=== PATIENT | female | born 1985 | race Hispanic/Latino ===

== ENCOUNTER 2023-05-05 23:20 | Emergency (ER) | payer OTHER ==
[2023-05-05] MEDS ORDERED: METHYLPREDNISOLONE 125 MG INJ ONE (23:49)
[2023-05-05] MEDS ORDERED: DIPHENHYDRAMINE 50 MG/ML VIAL ONE (23:50)
[2023-05-05] MEDS ORDERED: FAMOTIDINE 20 MG/2 ML VIAL IV ONE (23:50)
--- NOTE | 2023-05-06 00:53 | ER ---
Nurse's Notes [facility] Name: Zhanna Gomez Age: 37 yrs Sex: Female : 1985 Arrival Date: 05/05/2023 Time: 23:20 Bed 8 Private MD: Diagnosis: Allergic reaction Presentation: 05/05 23:37 Chief complaint: Patient states: swelling and rash on the face and extremities. denies rv SOB. airway is patent. Coronavirus screen: At this time, the client does not indicate any symptoms associated with coronavirus-19. Ebola Screen: No symptoms or risks identified at this time. Onset: The symptoms/episode began/occurred suddenly. Anaphylaxis evaluation, the patient reports or I have noted the following symptoms which indicate a significant risk of anaphylaxis: . The patient has been moved to a treatment room and the charge nurse or attending physician has been notified. Initial Sepsis Screen: Does the patient meet any 2 criteria? No. Patient's initial sepsis screen is negative. Does the patient have a suspected source of infection? No. Patient's initial sepsis screen is negative. Risk Assessment: Do you want to hurt yourself or someone else? Patient reports no desire to harm self or others. Onset of symptoms was May 05, 2023. 23:37 Method Of Arrival: Ambulatory rv 23:37 Acuity: LIUDMILA 2 rv Triage Assessment: 23:44 General: Appears comfortable, Behavior is calm, cooperative. Pain: Denies pain. Neuro: rv Level of Consciousness is awake, alert, obeys commands, Oriented to person, place, time, situation. Cardiovascular: Capillary refill. Respiratory: Airway is patent Respiratory effort is even, unlabored. Derm: Rash noted that is red, on face, right arm, left arm, right leg and left leg. Historical: - Allergies: 23:40 No Known Allergies; rv - PMHx: 23:40 None; rv - PSHx: 23:40 None; rv - Immunization history:: Adult Immunizations up to date. - Social history:: Smoking status: Patient denies any tobacco usage or history of. Screenin:44 [facility] ED Fall Risk Assessment (Adult) History of falling in the last 3 months, rv including since admission No falls in past 3 months (0 pts) Confusion or Disorientation No (0 pts) Intoxicated or Sedated No (0 pts) Impaired Gait No (0 pts) Mobility Assist Device Used No (0 pt) Altered Elimination No (0 pt) Score/Fall Risk Level 0 - 2 = Low Risk Oriented to surroundings, Maintained a safe environment, Educated pt \T\ family on fall prevention, incl call for assistance when getting out of bed, Assessed \T\ reinforced patient's understanding of fall precautions, Provided non-skid footwear, Hourly rounding (assess needs \T\ fall precautionary measures) done, Used ambulatory aids as needed (educated on \T\ assisted with), Used gait belt as appropriate. Abuse screen: Denies threats or abuse. Denies injuries from another. Nutritional screening: No deficits noted. Tuberculosis screening: No symptoms or risk factors identified. Assessment: 23:45 Respiratory: Airway is patent Breath sounds are clear bilaterally. rv Vital Signs: 23:37 BP 122 / 78; Pulse 126; Resp 18; Temp 97.9; Pulse Ox 95% ; Weight 102.06 kg; Height 5 rv ft. 4 in. ; 05/06 01:01 BP 110 / 73; Pulse 71; Resp 18 S; Pulse Ox 97% on R/A; jw7 05/05 23:37 Body Mass Index 38.62 (102.06 kg, 162.56 cm) rv ED Course: 05/05 23:21 Patient arrived in ED. kj1 23:23 Ximena Zamora MD is Attending Physician. sd2 23:24 Clement Avendaño, BRIGIDO is Primary Nurse. rv 23:30 Inserted saline lock: 20 gauge in right forearm, using aseptic technique. rv 23:39 Triage completed. rv 23:45 No provider procedures requiring assistance completed. rv 23:45 Patient has correct armband on for positive identification. Placed in gown. Bed in low rv position. Call light in reach. Provided Education on: ANAPHYLAXIS. Client placed on continuous cardiac and pulse oximetry monitoring. NIBP monitoring applied. playground monitor on. 23:45 Arm band placed on right wrist. rv 05/06 01:01 IV discontinued, intact, bleeding controlled, No redness/swelling at site. Pressure rv dressing applied. Administered Medications: 05/05 23:46 Drug: diphenhydrAMINE IVP 50 mg Route: IVP; Site: right forearm; rv 05/06 01:00 Follow up: Response: No adverse reaction rv 05/05 23:46 Drug: Famotidine IVP 20 mg Route: IVP; Site: right forearm; rv 05/06 01:00 Follow up: Response: No adverse reaction rv 05/05 23:46 Drug: MethylPrednisoLONE IVP 125 mg Route: IVP; Site: right forearm; rv 05/06 01:00 Follow up: Response: No adverse reaction rv Medication: 05/05 23:45 VIS not applicable for this client. rv Outcome: 05/06 00:52 Discharge ordered by . sd2 01:00 Discharged to home ambulatory, with significant other. rv 01:00 Condition: stable 01:00 Discharge instructions given to patient, Instructed on discharge instructions, follow up and referral plans. medication usage, Demonstrated understanding of instructions, follow-up care, medications, Prescriptions given X 2. 01:01 Patient left the ED. jw7 Signatures: Clement Avendaño RN RN rv Miriam Delatorre kj1 Nabila Lira RN RN jw7 Ximena Zamora MD MD sd2 Corrections: (The following items were deleted from the chart) 05/05 23:43 23:37 Acuity: LIUDMILA 3 rv rv
--- NOTE | 2023-05-06 00:53 | EDPHYS ---
Physician Documentation [facility] Name: Zhanna Gomez Age: 37 yrs Sex: Female : 1985 Arrival Date: 05/05/2023 Time: 23:20 Bed 8 Private MD: ED Physician Ximena Zamora HPI: 05/05 23:34 This 37 yrs old Female presents to ER via Unassigned with complaints of sd2 Allergic Reaction. 23:34 37 yo F presents with CC of allergic reaction to shrimp she ate about an hour ago for sd2 dinner. Reports normally only has a mild reaction in the past but has pruritic rash to entire body and swelling of her eyelids. Denies any significant trouble breathing, trouble swallowing, wheezing, vomiting or diarrhea. Did not take any medications for the symptoms before coming. . Historical: - Allergies: 23:40 No Known Allergies; rv - PMHx: 23:40 None; rv - PSHx: 23:40 None; rv - Immunization history:: Adult Immunizations up to date. - Social history:: Smoking status: Patient denies any tobacco usage or history of. ROS: 23:34 Constitutional: Negative for fever, chills, and weight loss, Eyes: Negative for injury, sd2 pain, redness, and discharge, Positive for lid swelling Neck: Negative for injury, pain, and swelling, Cardiovascular: Negative for chest pain, palpitations, and edema, Respiratory: Negative for shortness of breath, cough, wheezing. Abdomen/GI: Negative for abdominal pain, nausea, vomiting, diarrhea. MS/Extremity: Negative for injury and deformity, Skin: Negative for injury, Positive for rash, and discoloration. Exam: 23:34 Constitutional: This is a well developed, well nourished patient who is awake, alert, sd2 and in no acute distress. Head/Face: Normocephalic, atraumatic. Eyes: EOMI, normal conjunctiva bilaterally, bilateral upper eyelid mild edema present Neck: Trachea midline, no thyromegaly or masses palpated, and no cervical lymphadenopathy. Supple, full range of motion without nuchal rigidity, or vertebral point tenderness. No Meningismus. Chest/axilla: Normal chest wall appearance and motion. Nontender with no deformity. Cardiovascular: Regular rate and rhythm with a normal S1 and S2. No gallops, murmurs, or rubs. 2+ distal pulses. Respiratory: Lungs have equal breath sounds bilaterally, clear to auscultation and percussion. No rales, rhonchi or wheezes noted. No increased work of breathing, no retractions or nasal flaring. Abdomen/GI: Soft, non-tender, with normal bowel sounds. No guarding or rebound. No evidence of tenderness throughout. Skin: Warm, dry with normal turgor. Urticarial erythematous rash noted to all extremities, torso and face MS/ Extremity: Pulses equal, no cyanosis. Neurovascular intact. Full, normal range of motion. Ambulatory without difficulty. Psych: Awake, alert, with orientation to person, place and time. Behavior, mood, and affect are within normal limits. Vital Signs: 23:37 BP 122 / 78; Pulse 126; Resp 18; Temp 97.9; Pulse Ox 95% ; Weight 102.06 kg; Height 5 rv ft. 4 in. ; 05/06 01:01 BP 110 / 73; Pulse 71; Resp 18 S; Pulse Ox 97% on R/A; jw7 05/05 23:37 Body Mass Index 38.62 (102.06 kg, 162.56 cm) rv MDM: 05/05 23:29 Patient medically screened. sd2 23:34 Differential diagnosis: anaphylaxis, allergic reaction, bronchospasm, angioedema, sd2 urticaria among others. Data reviewed: vital signs, nurses notes. I considered the following discharge prescriptions or medication management in the emergency department Medications were administered in the Emergency Department. See NOV. 05/06 00:50 Counseling: I had a detailed discussion with the patient and/or guardian regarding the sd2 historical points, exam findings, and any diagnostic results supporting the discharge/admit diagnosis, the need for outpatient follow up, to return to the emergency department if symptoms worsen or persist or if there are any questions or concerns that arise at home. ED course: Re-evaluation shows resolution of almost all symptoms except minor eyelid swelling remains. pt feels much improved. VSS. No hypoxia or significant abnormalities. Pt with improved HR as well at 69 bpm. Pt advised of continued supportive care for home and need for outpatient follow up. Verbalizes understanding of discharge plan and strict return precautions. . Administered Medications: 05/05 23:46 Drug: diphenhydrAMINE IVP 50 mg Route: IVP; Site: right forearm; rv 05/06 01:00 Follow up: Response: No adverse reaction rv 05/05 23:46 Drug: Famotidine IVP 20 mg Route: IVP; Site: right forearm; rv 05/06 01:00 Follow up: Response: No adverse reaction rv 05/05 23:46 Drug: MethylPrednisoLONE IVP 125 mg Route: IVP; Site: right forearm; rv 05/06 01:00 Follow up: Response: No adverse reaction rv Disposition Summary: 05/06/23 00:52 Discharge Ordered Location: Home sd2 Problem: new sd2 Symptoms: have improved sd2 Condition: Stable sd2 Diagnosis - Allergic reaction sd2 Followup: sd2 - With: Private Physician - When: 2 - 3 days - Reason: Recheck today's complaints, Continuance of care, Re-evaluation by your physician Discharge Instructions: - Discharge Summary Sheet sd2 - Allergies, Adult sd2 - Seafood Allergy sd2 Forms: - Medication Reconciliation Form sd2 - Thank You Letter sd2 - Antibiotic Education sd2 - Prescription Opioid Use sd2 - Patient Portal Instructions sd2 - Leadership Thank You Letter sd2 Prescriptions: - epinephrine 0.3 mg/0.3 mL Injection Auto-Injector - administer 0.3 milliliter by INTRAMUSCULAR route once As needed Give only for sd2 severe allergic reaction; 1 unit; Refills: 0, Product Selection Permitted - Prednisone 20 mg Oral Tablet - take 2 tablets by ORAL route once daily for 5 days; 10 tablet; Refills: 0, sd2 Product Selection Permitted Signatures: Clement Avendaño RN RN rv Dunlop, Stephanie, MD MD sd2
[2023-05-06 01:33] VITALS: TEMP 97.9
[2023-05-06 01:36] VITALS: BP 110/73; O2SAT 97
== END 2023-05-06 01:01 | disposition home or self-care (01) ==
LOC: ER 23:20
DX: R21 Rash and other nonspecific skin eruption (principal)
CPT/HCPCS: 96375; 96374; 99285; J1200; J2930